=== PATIENT | male | born 1980 | race Caucasian/White ===

== ENCOUNTER 2019-12-13 18:28 | Emergency (ER) | payer BC, SELFPAY ==
[2019-12-13 18:44] VITALS: BMI 20.5
--- NOTE | 2019-12-13 18:45 | CT_ITS ---
PROCEDURE: CT ABDOMEN PELVIS W CON CLINICAL INDICATION: abd pain Severe abdominal pain COMPARISON: No exams were available for comparison TECHNIQUE: IV Contrast: 75ML OPTIRAY 350 Oral Contrast None Axial images obtained with sagittal and coronal reformats. All CT scans at the facility use one or more dose reduction, viz: automated exposure control, ma/kV adjustment per patient size (including targeted exams where dose is matched to indication, i.e. head), or iterative reconstruction technique. FINDINGS: LOWER THORAX: There is a 3 mm noncalcified nodule in the right middle lobe laterally nonspecific incompletely imaged seen on image 1. ABDOMEN & PELVIS: There is an 18 mm hypodensity in the right hepatic lobe with some questionable minimal puddling of contrast peripherally suggesting Zi angioma. The spleen, adrenal glands, pancreas, and kidneys have an unremarkable appearance. No renal or ureteral calculi. No intestinal obstruction or free air. No evidence of appendicitis. Multiple unopacified bowel loops in the abdomen or pelvis which could obscure or mimic pathology. If symptoms persist, consider repeat exam with IV and oral contrast.. Mild amount of retained colonic feces. There are few scattered air-fluid levels within the small bowel in the pelvic region. No acute bony findings IMPRESSION: 1. There are few scattered air-fluid levels within the small bowel in the pelvic region with fluid-filled loops of small bowel in the pelvis. Enteritis is a consideration. 2. Multiple unopacified bowel loops in the abdomen or pelvis which could obscure or mimic pathology. If symptoms persist, consider repeat exam with IV and oral contrast. 3. No evidence of appendicitis or obstructing ureteral calculus. 4. 18 mm low-density right hepatic lobe lesion possibly due to a hemangioma. MRI may confirm .. 5. 3 mm noncalcified nodule right middle lobe incompletely imaged Dictated by: Erwin Lawrence MD 12/14/2019 05:56 Erwin Lawrence MD in [facility] 12/14/2019 05:56
[2019-12-13 18:46] VITALS: BP 156/98; PULSE 81; RESP 17; TEMP 36.7; O2SAT 99; BMI 20.5
[2019-12-13 18:56] LABS: Basophils % 0.4 % (0.1-2.0); Eosinophils # 0.2 K/mm3 (0.0-0.4); Eosinophils % 2.6 % (0.1-12.0); Hematocrit 47.9 % (42.0-52.0); Hemoglobin 15.6 g/dL (14.1-18.0); Lymphocytes # 1.8 K/mm3 (0.7-4.5); Lymphocytes % 18.9 % (10-50); Mean Corpuscular HGB Conc 32.5 g/dL (31.8-35.4); Mean Corpuscular Hemoglobin 28.8 pg (27.0-31.2); Mean Corpuscular Volume 88.8 fl (80-94); Mean Platelet Volume 7.6 fl (7.4-10.4); Monocytes # 0.6 K/mm3 (0.1-1.0); Monocytes % 6.7 % (1.7-9.3); Neutrophils # 6.8 K/mm3 (1.8-7.8); Neutrophils % 71.5 % (37.0-80.0); Platelet Count 212 K/mm3 (142-424); Red Cell Distribution Width 12.9 % (11.5-17.5); White Blood Count 9.4 K/mm3 (4.8-10.8)
--- NOTE | 2019-12-13 18:57 | [facility].EDGENADL ---
ED Disposition Clinical Impression: Abdominal pain, periumbilical Disposition: Home, Self-Care Condition on Discharge: Fair Instructions: DI for Abdominal Pain-Adult Additional Instructions: Pepcid and Bentyl as prescribed. Additional instructions for ABDOMINAL PAIN: See your physician as soon as possible for further evaluation. Return immediately if worsening abdominal pain, vomiting, shortness of breath, fever, vomiting of blood or abdominal distention. Prescriptions: Dicyclomine HCl [Bentyl 10mg capsule] 10 mg PO TID #15 cap Prescription Printed Famotidine [Pepcid 20mg Tablet] 20 mg PO BID 5 Days #10 tab Prescription Printed Referrals: PCP,No [Primary Care Provider] - - Critical Care Critical Care Time: No Attestation: On , the high probability of a clinically significant, sudden or life threatening deterioration of the following system(s) required my full and direct attention, intervention and personal management. The time I documented below is in addition to time spent performing reported procedures but includes the following listed in this critical care notation. Medical Decision Making - Grabiel Inquiry Pt receiving controlled substance: No Vital Signs: 12/13/19 18:46 Temperature 98.1 F Temperature Source Oral Pulse Rate [Right Radial] 81 Respiratory Rate 17 Blood Pressure [Right Arm] 156/98 H Blood Pressure Mean [Right Arm] 117 02 Sat by Pulse Oximetry 99 Oxygen Delivery Method Room Air - Lab Data Lab results reviewed: Yes: I reviewed the patient's lab results. Lab Results 12/13/19 18:50: WBC 9.4, RBC 5.40, Hgb 15.6, Hct 47.9, MCV 88.8, MCH 28.8, MCHC 32.5, RDW 12.9, Plt Count 212, MPV 7.6, Neut % (Auto) 71.5, Lymph % (Auto) 18.9, [place] % (Auto) 6.7, Eos % (Auto) 2.6, Baso % (Auto) 0.4, Neut # (Auto) 6.8, Lymph # (Auto) 1.8, [place] # (Auto) 0.6, Eos # (Auto) 0.2, Baso # (Auto) 0.0 12/13/19 18:50: Sodium 139, Potassium 3.2 L, Chloride 101, Carbon Dioxide 29, Anion Gap 12.2, BUN 6 L, Creatinine 0.80, Estimated Creat Clear 130, Estimated GFR 109, Est GFR ( Amer) 132, Glucose 79, Calcium 9.4, Total Bilirubin 0.7, AST 28, ALT 22, Alkaline Phosphatase 52, Total Protein 7.3, Albumin 4.5, Globulin 2.8, Albumin/Globulin Ratio 1.6, Amylase 96, Lipase 89 12/13/19 19:47: Urine Color Yellow, Urine Appearance Clear, Urine pH 7.0, Ur Specific [place] 1.010, Urine Protein Negative, Urine Glucose (UA) Negative, Urine Ketones Negative, Urine Blood Negative, Urine Nitrate Negative, Urine Bilirubin Negative, Urine Urobilinogen 0.2, Ur Leukocyte Esterase Negative, Urine RBC Occasional, Urine WBC 3-5, Ur Squamous Epith Cells Occasional, Urine Bacteria Trace, Hyaline Casts 3-5 Result diagrams: 12/13/19 18:50 12/13/19 18:50 Orders (Tests/Meds): ED MEDICATIONS Generic Name Dose Route Start Last Admin Trade Name Freq PRN Reason Stop Dose Admin Sodium Chloride 1,000 mls @ 999 mls/hr 12/13/19 18:45 12/13/19 18:52 Sod Chlor 0.9% 1000ml Bag IV 12/13/19 19:45 999 mls/hr .Q1H1M CHANCE Administration Discontinued Medications Generic Name Dose Route Start Last Admin Trade Name Freq PRN Reason Stop Dose Admin Ioversol 75 ml 12/13/19 19:18 12/13/19 19:19 Ioversol-350 (74%) 100ml Vial IV 12/13/19 19:19 75 ml ONCE ONE Administration Protocol Ketorolac Tromethamine 30 mg 12/13/19 18:50 12/13/19 18:52 Ketorolac 30mg/Ml Vial IV 12/13/19 18:51 30 mg ONCE ONE Administration Ondansetron HCl 4 mg 12/13/19 18:50 12/13/19 18:52 Ondansetron 4mg/2ml Vial IV 12/13/19 18:51 4 mg ONCE ONE Administration Sodium Chloride 10 ml 12/13/19 19:18 12/13/19 19:19 Sodium Chloride 0.9% 10ml Syr (Rad Only) IV 12/13/19 19:19 10 ml ONCE ONE Administration ORDERS Category Date Time Status CT abdomen pelvis w con Stat Cat Scan 12/13/19 18:45 Taken - CT Data CT Scan: Abdomen, Pelvis Time Received: 20:02 ([facility] fax) ED CT Reviewed: Yes: I have viewed the r
[2019-12-13 19:02] LABS: Alanine Aminotransferase 22 U/L (12-78); Albumin Level 4.5 g/dl (3.5-5.0); Albumin/Globulin Ratio 1.6 (1.1-1.8); Alkaline Phosphatase 52 U/L (38-126); Amylase 96 U/L (30-110); Anion Gap 12.2 mEq/L (5-15); Aspartate Amino Transferase 28 U/L (17-59); Bilirubin,Total 0.7 mg/dl (0.2-1.3); Blood Urea Nitrogen 6 mg/dl (9-20); Calcium 9.4 mg/dl (8.4-10.2); Carbon Dioxide 29 mmol/L (22.0-30.0); Chloride 101 mmol/L (98-107); Creatinine Clearance Estimated 130 mL/min (50-200); Estimated Glomerular Filt Rate 109 ml/min (>60); GFR (African American) 132 ML/MIN (>60); Globulin 2.8 g/dL (1.3-3.2); Glucose 79 mg/dl (74-100); Lipase 89 U/L (23-300); Potassium 3.2 mmoL/L (3.5-5.1); Sodium 139 mmol/L (136-145); Total Protein,Serum 7.3 g/dl (6.3-8.2)
[2019-12-13 19:48] LABS: Microscopic, Urine URINE MICROSCOPIC (MICROSCOPIC)
[2019-12-13 19:50] LABS: Appearance,Urine CLEAR (Clear); Bilirubin,Urine Negative (Negative); Blood, Urine Negative (Negative); Color,Urine YELLOW (Yellow); Glucose,Urine (UA) Negative (Negative); Ketones,Urine Negative (Negative); Leukocyte Esterase,Urine Negative (Negative); Nitrate,Urine Negative (Negative); Protein,Urine Negative (Negative); Urobilinogen,Urine 0.2 EU/dl (0.2)
[2019-12-13 19:59] LABS: Bacteria,Urine Trace /lpf; RBC,Urine Occasional #/hpf (0-3); Squamous Epithelial Cell,Urine Occasional #/hpf (0-5)
--- NOTE | 2019-12-13 20:02 | ECG_ITS ---
APPROVED REPORT Exam: Resting ECG HR:57 bpm ECG Measurements Heart Rate 57 AXES OR 176 P 80 QRSd 100 QRS 109 QT 424 T 82 QTc 412 Conclusion Sinus bradycardia Rightward axis Poor R Wave Progression Abnormal ECG Electronically signed by : Hector Gray, 12/15/2019 14:22:11
[2019-12-13 20:27] VITALS: BP 140/88; PULSE 82; RESP 17; TEMP 36.7; O2SAT 99
== END 2019-12-13 20:34 | disposition home or self-care (01) ==
PROVIDERS: Emergency Provider Emergency Medicine
DX: R10.33 Periumbilical pain (principal); F17.210 Nicotine dependence, cigarettes, uncomplicated
CPT/HCPCS: 74177; 80053; 81001; 82150; 83690; 85025; 93005; 96365; 96375; 99282; J2405; Q9967